=== PATIENT | female | born 1950 | race Asian ===

== ENCOUNTER → 2016-05-03 | Outpatient (CLI) | payer BC ==
[~2016-05-03] MED LIST: CIPRO250 MG; MULTI-VITAMIN1 TAB; NEXIUM; PROTONIX PO
[2016-05-03 14:42] LABS: ALBUMIN SERUM 4.8 g/dL (3.5-5.0); ALKALINE PHOSPHATASE 87 U/L (32-92); ALT (SGPT) 27 U/L (10-40); AST (SGOT) 23 U/L (10-42); BILIRUBIN,TOTAL 0.9 mg/dL (0.2-2.0); BLOOD UREA NITROGEN 15 mg/dL (9-23); BUN/CREATININE RATIO 21.42; CALCIUM SERUM 9.7 mg/dL (8.4-10.2); CARBON DIOXIDE 24 mmol/L (22-31); CHLORIDE 104 mmol/L (100-111); CHOLESTEROL 181 mg/dL (0-200); CREATININE SERUM 0.7 mg/dL (0.6-1.4); GLOM FILT RATE Estimated ABOVE60 mL/min (>60); GLUCOSE FASTING 95 mg/dL (70-110); HDL CHOLESTEROL 67 mg/dL (35-95); LDL CHOLESTEROL 90 mg/dL (-130); LDL/HDL RATIO 1 RATIO (0-4); PROTEIN TOTAL SERUM 8.2 g/dL (6.0-8.3); SODIUM 139 mmol/L (135-145); TRIGLYCERIDES 122 mg/dL (10-160)
== END | disposition home or self-care (01) ==
LOC: CLAB 13:26
PROVIDERS: Internal Medicine
DX: E78.00 Pure hypercholesterolemia, unspecified (principal); R73.03 Prediabetes
CPT/HCPCS: 36415; 80053; 80061; 83036